=== PATIENT | female | born 1990 ===

== ENCOUNTER 2025-10-13 05:46 | Inpatient (IN) | payer OTHER ==
[2025-10-13] VITALS (11 sets, daily range): BP systolic 102–125; BP diastolic 54–65
[~2025-10-13] VITALS: Ht 154.9 cm; Wt 76.7 kg
[2025-10-13] MEDS ORDERED: RINGERS SOLUTION,LACTATED 1,000 ML IV SCH (06:00)
[2025-10-13 07:00] LABS: URINE APPEARANCE Clear; URINE BILIRRUBIN Negative (NEGATIVE); URINE BLOOD Negative; URINE COLOR Yellow; URINE GLUCOSE Negative (NEGATIVE); URINE KETONE Negative (NEGATIVE); URINE LEUKOCYTE Small; URINE NITRATE Negative; URINE PROTEIN Negative (NEGATIVE); URINE UROBILINOGEN 1.0 E.U./dl
[2025-10-13 07:07] LABS: URINE BACTERIA 544.5 uL (0.0-1933); URINE EPITHELIAL CELLS 11.2 uL (0.0-38.8); URINE RBC 4.6 uL (0.0-20.8); URINE WBC 21.9 uL (0.0-23.2)
[2025-10-13 07:08] LABS: BASO % 0.2 % (0.1-1.2); EOS # 0.05 (0.04-0.54); EOS % 0.8 % (0.7-7.0); LYMPH # 2.34 (1.18-3.74); LYMPH % 38.0 % (19.3-53.1); MEAN PLATELET VOLUME 10.40 fl (9.4-12.4); MONO # 0.50 (0.24-0.82); MONO % 8.1 % (4.7-12.5); NEUT # 3.23 (1.56-6.13); NEUT % 52.6 % (34.0-71.1); RED CELL DISTRIBUTION WIDTH 12.8 % (11.6-14.4)
[2025-10-13 07:18] LABS: URINE CAST 0.14 uL (0.0-1.40)
[2025-10-13] MEDS ORDERED: PRENATAL TABLE1 EAC4 PO (07:21)
[2025-10-13 07:36] LABS: ALT/SGPT 27.0 U/L (12-78); AST/SGOT 22.0 U/L (15-37); BILIRUBIN TOTAL 0.28 mg/dL (0.3-1.2); BUN CREA RATIO 14.0 (7.0-25.0); CREATININE SERUM 0.5 mg/dL (0.55-1.02); GFR 142.98; GLOBULINA 3.0 G/DL (2.4-3.5); GLUCOSE FASTING 97.0 mg/dL (65-100); OSMOLALITY SERUM 277.0 MOSM/KG (275-295)
[2025-10-13 07:57] LABS: INR < 0.93
[2025-10-13] MEDS ORDERED: OXYTOCIN 500 ML IV SCH (09:00)
[2025-10-13] MEDS ORDERED: MORPHINE SULFATE 4 MG/ML CARTRIDGE IV ONE (14:00)
[2025-10-13] MEDS ORDERED: CHLORHEXIDINE GLUCONATE 120 ML BOTTLE TOP ONE (18:30)
[2025-10-13] MEDS ORDERED: LIDOCAINE HCL 1% 10ML VIAL PERCUT ONE (18:30)
[2025-10-13] MEDS ORDERED: ERYTHROMYCIN BASE OPHT 1GM EACH TUBE OP ONE (18:30)
[2025-10-13] MEDS ORDERED: OXYTOCIN 20 UNITS/1000ML RL PIGGYBAG IV SCH (19:00)
[2025-10-14] VITALS: BP 100/60
[2025-10-14 08:43] VITALS: BP 100/60
[2025-10-14] MEDS ORDERED: FF) RHO(D) IMMUNE GLOBULIN (POM) IM NR (11:45)
[2025-10-14 13:28] VITALS: BP 110/66
[2025-10-14 16:04] VITALS: BP 104/61
[2025-10-15 00:50] VITALS: BP 110/70
[2025-10-15 09:18] VITALS: BP 106/63
[2025-10-15] MEDS ORDERED: MEASLES,MUMPS,RUBELLA VACC/PF 1 VIAL VIAL SUBCUTANEO NR (12:00)
[2025-10-15] MEDS ORDERED: FF) RHO(D) IMMUNE GLOBULIN (POM) IM NR (12:15)
== END 2025-10-15 14:30 | disposition home or self-care (01) | DRG 807 ==
LOC: OB/GYN 05:46 → LDR 05:46 → OB/GYN 19:39
PROVIDERS: ADMIT Specialist; ATTEND Specialist
PROC: 10E0XZZ Delivery of Products of Conception, External Approach (ICD-10-PCS; principal; 2025-10-13)
PROC: 0HQ9XZZ Repair Perineum Skin, External Approach (ICD-10-PCS; 2025-10-13)
PROC: 4A1HXCZ Monitoring of Products of Conception, Cardiac Rate, External Approach (ICD-10-PCS; 2025-10-13)
DX: O70.0 First degree perineal laceration during delivery (principal); Z37.0 Single live birth; Z3A.39 39 weeks gestation of pregnancy